=== PATIENT | male | born 1985 | race Asian ===

== ENCOUNTER 2018-04-03 07:56 | Emergency (ER) | payer MEDICAID ==
[~2018-04-03] VITALS: Ht 157.5 cm; Wt 62.0 kg
[~2018-04-03 07:56] MED LIST: RISP1TAB13 PO; RISP1TAB3 PO; RISP4TAB2 PO; RISP4TAB7 PO; SERT100T PO; SERT50TA PO
[2018-04-03 08:35] LABS: BASOPHILS % (AUTO) 0.2 % (0-1); EOSINOPHILS # (AUTO) 0.3 X10'3 (0-0.9); EOSINOPHILS % (AUTO) 4.2 % (0-6); HEMATOCRIT 48.1 % (42.0-52.0); HEMOGLOBIN 16.5 g/dl (14.0-17.9); LYMPHOCYTES # (AUTO) 3.2 X10'3 (1.1-4.8); LYMPHOCYTES % (AUTO) 52.2 % (21-51); MEAN CORPUSCULAR HEMOGLOBIN 30.7 PG (27.0-31.0); MEAN CORPUSCULAR HGB CONC 34.3 % (33.0-36.5); MEAN CORPUSCULAR VOLUME 89.6 FL (78-98); MEAN PLATELET VOLUME 6.9 FL (7.4-10.4); MONOCYTES # (AUTO) 0.3 X10'3 (0-0.9); MONOCYTES % (AUTO) 4.4 % (2-12); NEUTROPHILS # (AUTO) 2.4 X10'3 (1.8-7.7); PLATELET COUNT 340 X10'3 (140-440); RED BLOOD COUNT 5.37 X10'6 (4.70-6.10); RED CELL DISTRIBUTION WIDTH 13.3 % (11.5-14.5); WHITE BLOOD COUNT 6.1 X10'3 (4.5-11.0)
[2018-04-03 08:55] LABS: ALANINE AMINOTRANSFERASE 98 U/L (12-78); ALBUMIN 3.8 G/DL (3.4-5.0); ALBUMIN/GLOBULIN RATIO 0.9 (1.1-1.5); ALKALINE PHOSPHATASE 107 IU/L (46-116); ANION GAP 11 (8-16); BILIRUBIN,TOTAL 0.5 MG/DL (0.1-1.0); BLOOD UREA NITROGEN 9 MG/DL (7-18); BUN/CREATININE RATIO 11.5 (5.4-32.0); CALCIUM 8.2 MG/DL (8.5-10.1); CHLORIDE 104 MMOL/L (99-107); CREATININE 0.78 MG/DL (0.60-1.10); SODIUM 142 MMOL/L (135-145); TOTAL CARBON DIOXIDE 26.7 MMOL/L (24-32); eGFR > 90 ML/MIN
[2018-04-03 09:12] LABS: ASPARTATE AMINO TRANSFERASE 82 U/L (10-37)
[2018-04-03 09:27] LABS: GLUCOSE 144 MG/DL (70-104); POTASSIUM 3.8 MMOL/L (3.5-5.1)
[2018-04-03 09:37] LABS: PARTIAL THROMBOPLASTIN TIME 27 SECONDS (22-32); PROTHROMBIN TIME 10.3 SECONDS (9.0-12.0)
[2018-04-03] MEDS ORDERED: FAMO40TA73 PO (09:57)
[2018-04-03 10:35] VITALS: BP 109/73
== END 2018-04-03 10:36 | disposition home or self-care (01) ==
LOC: ER 07:56
DX: K29.00 Acute gastritis without bleeding (principal); R10.13 Epigastric pain; I10 Essential (primary) hypertension; E11.9 Type 2 diabetes mellitus without complications; F15.90 Other stimulant use, unspecified, uncomplicated; Z79.899 Other long term (current) drug therapy
CPT/HCPCS: 36415; 71045; 80053; 82948; 84484; 85025; 85610; 85730; 93005; 99285

== ENCOUNTER 2018-04-22 18:10 | Emergency (ER) | payer MEDICAID ==
[~2018-04-22] VITALS: Ht 154.9 cm; Wt 63.6 kg
[~2018-04-22 18:10] MED LIST changes: +FAMO40TA73 PO; -RISP1TAB13 PO; -RISP1TAB3 PO; -RISP4TAB2 PO; -RISP4TAB7 PO; -SERT100T PO
[2018-04-22 18:45] VITALS: BP 100/68
[2018-04-22] MEDS ORDERED: AMOX-422 PO (18:53)
[2018-04-22] MEDS ORDERED: ibuprofen tablet 400 MG TABLET PO ONE (18:55)
[2018-04-22] MEDS ORDERED: amox tr/potassium clavulanate 875/125mg TAB PO ONE (18:55)
== END 2018-04-22 19:29 | disposition home or self-care (01) ==
LOC: ER 18:11
DX: S41.111A Laceration without foreign body of right upper arm, initial encounter (principal); S51.811A Laceration without foreign body of right forearm, initial encounter; S61.511A Laceration without foreign body of right wrist, initial encounter; S41.131A Puncture wound without foreign body of right upper arm, initial encounter; I10 Essential (primary) hypertension; E11.9 Type 2 diabetes mellitus without complications; F15.90 Other stimulant use, unspecified, uncomplicated; Z79.899 Other long term (current) drug therapy; W54.0XXA Bitten by dog, initial encounter; Y93.89 Activity, other specified; Y92.89 Other specified places as the place of occurrence of the external cause; Y99.8 Other external cause status
CPT/HCPCS: 12001; 99284